=== PATIENT | female | born 1980 | race Caucasian/White ===

== ENCOUNTER 2018-04-10 11:45 | Inpatient (IN) | payer OTHER ==
[2018-04-10] MEDS ORDERED: IBUPROFEN 600 MG TAB PO PRN (11:59)
[2018-04-10] MEDS ORDERED: OLIVE OIL 118 ML BTL MISC PRN (11:59)
[2018-04-10] MEDS ORDERED: MISOPROSTOL 200 MCG TAB PR PRN (11:59)
[2018-04-10] MEDS ORDERED: TERBUTALINE SULFATE 1 MG/ML VIAL IV PRN (11:59)
[2018-04-10] MEDS ORDERED: EPSOM SALT 454 GM TP PRN (11:59)
[2018-04-10] MEDS ORDERED: LIDOCAINE 1% 300 MG/30 ML SDV SC PRN (11:59)
[2018-04-10] MEDS ORDERED: OXYTOCIN/RINGERS LACTATE 1,000 ML IV PRN (11:59)
[2018-04-10] MEDS ORDERED: LR 1,000 ML IV PRN (11:59)
[2018-04-10] MEDS ORDERED: OXYTOCIN 10 UNIT/ML VIAL ONE (12:44)
[2018-04-10] MEDS ORDERED: LIDOCAINE 1% 300 MG/30 ML SDV ONE (12:44)
[2018-04-10] MEDS ORDERED: OLIVE OIL 118 ML BTL ONE (12:44)
[2018-04-10] MEDS ORDERED: MISOPROSTOL 200 MCG TAB ONE (12:44)
[2018-04-10] MEDS ORDERED: AMMONIA AROMATIC 1 EACH AMP IH ONE (12:44)
[2018-04-10 13:03] LABS: PLATELET COUNT 255 10^3/uL (150-400)
--- NOTE | 2018-04-10 14:18 | GHP ---
DATE OF ADMISSION: 04/10/2018 ADMITTING DIAGNOSES: 1. Intrauterine at 37 weeks and 1 day. 2. Active labor. HISTORY OF PRESENT ILLNESS: Patient is a 37-year-old, 4, para 2-0-1-2, at 37 weeks and 1 day with an estimated due date of 04/30/2018 by ultrasound done at 7 weeks. Patient presents with complaints of contractions that started this morning around 5 a.m. about every 3-4 minutes. They are not taking her breath away, she was able to "clean the dishes." Denies any leakage of fluid or vaginal bleeding. Baby girl is still moving, patient feels her kicking. Contractions now have picked up in intensity and are closer every 2-3 minutes. She is wanting to do this naturally without nitrous or an epidural. Patient has good care at [facility], and presented in her first trimester. is complicated by AMA. Patient declined all genetic screening and a level 2 ultrasound. On anatomy scan, there were multiple anomalies noted with estimated weight less than 2nd percentile. Patient had a level 2 ultrasound with MFM and findings consistent with trisomy 18, incompatible with life. Options of termination versus expectant management were discussed. Patient decided they would not interrupt the . Risks of stillbirth in this setting were discussed and comfort care with emphasis on vaginal delivery discussed. Patient declined glucola, no Tdap was given and no GBS culture was collected. PAST OB HISTORY: In 06/2010, patient delivered a viable female infant at 39 weeks via vaginal delivery, weighing 6 pounds 14 ounces. In March 2014, she delivered a viable female infant at 40 weeks, 3 days via vaginal delivery, weighing 7 pounds 14 ounces, uncomplicated. In March 2017, she had an SAB at 6 weeks, that did not need a D and C. PAST OFFICE ASSISTANT RECEPTIONIST HISTORY: Age of menarche 15. Cycles are 27-30 days for 5-7 days. LMP is 07/15/2017. She denies history of abnormal Pap smears or any exposure to sexually transmitted diseases. History of OCP use, that was discontinued in 2008. CURRENT MEDICATIONS: Include vitamins. ALLERGIES: Penicillin, reaction is rash. PAST MEDICAL HISTORY: Unremarkable. PAST SURGICAL HISTORY: None. FAMILY HISTORY: Sister with asthma, and thyroid dysfunction. Father with skin cancer. Mother with stroke, dementia, at 71 years of age. Brother with history of alcohol abuse. REVIEW OF SYSTEMS: Ten-point review of systems is negative. Pertinent positives noted in HPI. LABS: H and H 1st trimester 13.2 and 38.8, platelets 261. Blood type O positive, antibody negative. RPR nonreactive. Rubella immune. Hepatitis B surface antigen negative. HIV negative. TSH/free T4 at 2.7 and 1.42. Pap test January 2017 was negative. Hemoglobin 3rd trimester 37%. Patient declined 1- hour Glucola. No need for GBS. PHYSICAL EXAMINATION: VITAL SIGNS: Stable. Patient is afebrile at 36.9, heart rate 65, respirations 18, blood pressure 127/91, repeat blood pressure 118 /86. GENERAL: Well-nourished, well-developed female, alert and oriented x3. No apparent distress. She is tearful. SKIN: Warm, dry without rash. NEURO: Grossly intact. CARDIOVASCULAR: Regular rate and rhythm. LUNGS: Clear to auscultation bilaterally. ABDOMEN: Gravid, soft, nontender, nondistended. PELVIC: On exam, she is found to be 5-6 cm dilated, 80% effaced, -2, and intact. EXTREMITIES: Normal to inspection without calf tenderness or edema. heart tones with baseline of 120 bpm. On toco, contractions are every 2-3 min. ASSESSMENT/PLAN: Patient is a 37-year-old, 4, para 2-0-1-2, at 37 weeks and 1 day, who presents in active labor. 1. Admit to Labor and Delivery for expectant management. 2. Comfort care only since baby girl has trisomy 18, that is incompatible with life. 3. [employer] aware and spoke with patient and FOC. 4. Patient wants to go natural, declines nitrous and epidural at this time. 5. Anticipate spontaneous vaginal delivery. /[id number]/MODL MTDD
--- NOTE | 2018-04-10 15:36 | OBDEL ---
Info Type: Vaginal Presentation at Delivery: Vertex L&D Analgesia/Anesthesia Type: None GBS+: No (not done) - Hospital Course Intrapartum: 04/10/18 15:34 IUP @ 37 1/7 weeks who presents in active labor; AMA; multiple anomalies on anatomy scan; Level II with MFM c/w Trisomy 18-incompatible with life. Indications for Delivery: Spontaneous Labor Vaginal Delivery - Delivery Provider Delivery Physician/CNM: Renee Avelar - Labor and Delivery Onset of Contractions Date: 04/10/18 Onset of Contractions Time: 04:30 Onset of Contractions Type: Spontaneous Rupture of Membranes Date: 04/10/18 Rupture of Membranes Time: 15:00 Rupture of Membranes Type: Artificial Amniotic Fluid Color: Clear Dilation Complete Date: 04/10/18 Dilation Complete Time: 15:00 Placenta Delivery Date: 04/10/18 Placenta Delivery Time: 15:21 Total Hours of Labor: 10 Laceration: 1st Degree Repair: Other (Specify) (not repaired) Vaginal Sponge Count Correct: Yes Vaginal Needle Count Correct: Yes Vaginal Sweep Performed: Yes EBL: 250 cc Delivery Events: None Delivery Comment: Uncomplicated Data LEE: 04/30/18 Gestational Age: 37 week(s) and 1 day(s) [place] Delivery Date: 04/10/18 Delivery Time: 15:11 Sex of : Female ("Sarika") Score (1 Min): 2 Score (5 Min): 2 Score (10 Min): 2 ICD10 Worksheet Patient Problems: Problems Problem Status Onset Spontaneous vaginal delivery Acute Trisomy 18 of fetus in current Acute - ICD10 Problem Qualifiers (1) Trisomy 18 of fetus in current
[2018-04-10] MEDS ORDERED: SIMETHICONE 80 MG TAB CHEW PO PRN (15:39)
[2018-04-10] MEDS ORDERED: HYDROCORTISONE 0.5% CREAM TP PRN (15:39)
[2018-04-10] MEDS ORDERED: DOCUSATE SODIUM 100 MG CAP PO PRN (15:39)
[2018-04-10] MEDS ORDERED: ACETAMINOPHEN 325 MG TAB PO SCH (15:45)
[2018-04-10] MEDS ORDERED: IBUPROFEN 600 MG TAB PO SCH (21:39)
== END 2018-04-10 23:09 | disposition home or self-care (01) | DRG 775 ==
LOC: OBSVTOIN 11:45 → FLD 11:45
PROVIDERS: ADMIT Obstetrics & Gynecology; ATTEND Obstetrics & Gynecology
PROC: 10907ZC Drainage of Amniotic Fluid, Therapeutic from Products of Conception, Via Natural or Artificial Opening (ICD-10-PCS; principal; 2018-04-10)
PROC: 10E0XZZ Delivery of Products of Conception, External Approach (ICD-10-PCS; principal; 2018-04-10)
DX: O70.0 First degree perineal laceration during delivery (principal); O35.1XX0 Maternal care for (suspected) chromosomal abnormality in fetus, not applicable or unspecified; Z3A.37 37 weeks gestation of pregnancy; Z37.0 Single live birth
CPT/HCPCS: J2590